=== PATIENT | male | born 1985 | race Caucasian/White ===

== ENCOUNTER 2023-11-01 02:03 | Inpatient (IN) ==
[2023-11-01] MEDS ORDERED: IOPAMIDOL 100 ML BOTTLE IV ONE (02:04)
[2023-11-01] MEDS: LACTATED RINGERS 1,000 ML IV ONE (02:40)
[2023-11-01] MEDS: DIAZEPAM 10 MG/2 ML SYRINGE IV ONE (02:40)
[2023-11-01 02:54] LABS: Basophils # (Auto) 0.05 K/mcL (0.00-0.30); Basophils % (Auto) 0.8 % (0.0-2.0); Eosinophils # (Auto) 0.12 K/mcL (0.00-0.70); Hematocrit 40.5 % (40.1-51.0); Hemoglobin 13.7 g/dL (13.7-17.5); Lymphocytes # (Auto) 0.99 K/mcL (1.50-4.80); Lymphocytes % (Auto) 16.5 % (15.5-49.0); Mean Cell Volume 98.5 fL (80.0-100.0); Mean Corpuscular HGB Conc 33.8 g/dL (31.0-36.0); Mean Platelet Volume 10.7 fL (8.8-12.5); Monocytes # (Auto) 0.73 K/mcL (0.10-0.90); Monocytes % (Auto) 12.1 % (1.0-12.0); Neutrophils % (Auto) 68.4 % (38.0-78.0); Platelet Count 132 K/mcL (140-440); RBC 4.11 M/mcL (4.63-6.08)
[2023-11-01] MEDS: HYDROmorphone 0.5 MG/0.5 ML SYRINGE IV ONE ×2 (03:05→03:40)
[2023-11-01 03:06] LABS: ALT/SGPT 214 U/L (<40); AST/SGOT 307 U/L (<40); Albumin 4.7 gm/dL (3.2-5.2); Albumin/Globulin Ratio 1.6 (1.0-2.3); Alkaline Phosphatase 126 U/L (39-117); Bilirubin,Total 1.4 mg/dL (0.1-1.0); Blood Urea Nitrogen 7 mg/dL (6-20); Calcium 9.7 mg/dL (8.6-10.4); Carbon Dioxide 26 mmol/L (22-30); Chloride 87 mmol/L (96-108); Glomerular Filtration Rate 120; Glucose 118 mg/dL (70-105)
[2023-11-01 03:10] LABS: Appearance,Urine CLEAR (Clear); Bilirubin,Urine Negative (Negative); Color,Urine AMBER; Culture Indicated,Urine No; Glucose,Urine (UA) Negative (Negative); Ketones,Urine 20 mg/dL (Negative); Leukocyte Esterase,Urine Negative /uL (Negative); Nitrate,Urine Negative (Negative); Protein,Urine Negative (Negative); Specific Gravity,Urine 1.025 (1.000-1.035); Urine Blood Negative (Negative)
[2023-11-01] MEDS: 0.9 % SODIUM CHLORIDE 1,000 ML IV ONE (03:51)
[2023-11-01] MEDS: ACETAMINOPHEN 1,000 MG/100 ML BAG IV ONE (04:07)
[2023-11-01] MEDS: LORazepam 2 MG/ML VIAL IV ONE (04:22)
[2023-11-01] MEDS: ONDANSETRON 4 MG/2 ML VIAL IV ONE (04:22)
[2023-11-01] MEDS: KETOROLAC 15 MG/ML VIAL IV ONE (05:48)
[2023-11-01] MEDS ORDERED: chlordiazePOXIDE 25 MG CAPSULE PO PRN (09:30)
[2023-11-01] MEDS ORDERED: ENALAPRILAT 1.25 MG/ML VIAL IV PRN (09:30)
[2023-11-01] MEDS ORDERED: SENNOSIDES 1 TABLET PO PRN (09:32)
[2023-11-01] MEDS ORDERED: IPRATROPIUM/ALBUTEROL 3 ML AMPUL.NEB NEB PRN (09:32)
[2023-11-01] MEDS ORDERED: ACETAMINOPHEN 325 MG TABLET PO PRN (09:32)
[2023-11-01] MEDS ORDERED: POTASSIUM CHLORIDE 20 MEQ TABLET PO PRN ×2 (09:32)
[2023-11-01] MEDS ORDERED: POTASSIUM CHLORIDE 40 MEQ in DEXTROSE 5% IN WATER 500 ML IV PRN (09:32)
[2023-11-01] MEDS ORDERED: POLYETHYLENE GLYCOL 3350 17 GM PACKET PO PRN (09:32)
[2023-11-01] MEDS: HYDROmorphone 0.5 MG/0.5 ML SYRINGE IV PRN (09:41)
[2023-11-01 09:58] LABS: Lactate Dehydrogenase 309 U/L (135-225)
[2023-11-01] MEDS: ENOXAPARIN 40 MG/0.4 ML SYRINGE SQ SCH (10:26)
[2023-11-01] MEDS: FOLIC ACID 1 MG TABLET PO SCH (10:26)
[2023-11-01] MEDS: MULTIVIT,THER IRON,CA,FA & MIN 1 TABLET PO SCH (10:26)
[2023-11-01] MEDS: 0.9 % SODIUM CHLORIDE 1,000 ML IV SCH ×2 (10:27→18:11)
[2023-11-01] MEDS: THIAMINE 100 MG in 0.9 % SODIUM CHLORIDE 50 ML IV SCH (10:27)
[2023-11-01] MEDS: HYDROmorphone 1 MG/ML SYRINGE ONE (10:28)
[2023-11-01] MEDS: HYDROcodone/APAP 5/325MG TABLET PO PRN (10:46)
[2023-11-01] MEDS: LORazepam 2 MG/ML VIAL IV PRN (11:10)
[2023-11-01 12:51] LABS: Hepatitis A Antibody IgM Non-Reactive (Non-Reactive); Hepatitis B Surface Antigen Negative (Negative); Hepatitis C Virus Antibody Non-Reactive (Non-Reactive)
[2023-11-01] MEDS ORDERED: ONDANSETRON 4 MG ODT TABLET SL PRN (13:12)
[2023-11-01] MEDS: ONDANSETRON 4 MG/2 ML VIAL ONE (13:18)
[2023-11-01] MEDS: ONDANSETRON 4 MG/2 ML VIAL IV PRN (13:18)
[2023-11-01] MEDS: 0.9 % SODIUM CHLORIDE 10 ML SYRINGE IV SCH (14:02)
[2023-11-01] MEDS: cloNIDine HCL 0.1 MG TABLET PO PRN (19:17)
[2023-11-01] MEDS: DOCUSATE SODIUM 100 MG CAPSULE PO SCH (20:53)
[2023-11-01] MEDS: ALPRAZolam 0.5 MG TABLET PO SCH (20:54)
[2023-11-02] MEDS: MAGNESIUM SULFATE 2 GM/50 ML BAG IV PRN (03:09)
[2023-11-02 06:47] LABS: ALT/SGPT 134 U/L (<40); AST/SGOT 147 U/L (<40); Albumin 4.1 gm/dL (3.2-5.2); Albumin/Globulin Ratio 1.7 (1.0-2.3); Alkaline Phosphatase 97 U/L (39-117); Bilirubin,Direct 0.5 mg/dL (<0.3); Bilirubin,Total 1.1 mg/dL (0.1-1.0); Blood Urea Nitrogen 7 mg/dL (6-20); Calcium 9.1 mg/dL (8.6-10.4); Carbon Dioxide 26 mmol/L (22-30); Chloride 88 mmol/L (96-108); Globulin 2.4 gm/dL (2.2-3.7); Glomerular Filtration Rate 114; Glucose 81 mg/dL (70-105); Lactate Dehydrogenase 190 U/L (135-225); Phosphorous 3.4 mg/dL (2.5-4.5); Triglycerides 54 mg/dL (<150); Uric Acid 4.2 mg/dL (2.5-8.0)
[2023-11-02 07:37] LABS: Basophils # (Auto) 0.03 K/mcL (0.00-0.30); Basophils % (Auto) 0.4 % (0.0-2.0); Eosinophils % (Auto) 4.1 % (0.0-7.0); Hematocrit 36.2 % (40.1-51.0); Hemoglobin 11.9 g/dL (13.7-17.5); Lymphocytes # (Auto) 0.93 K/mcL (1.50-4.80); Lymphocytes % (Auto) 12.7 % (15.5-49.0); Mean Cell Volume 102.5 fL (80.0-100.0); Mean Corpuscular HGB Conc 32.9 g/dL (31.0-36.0); Mean Platelet Volume 10.6 fL (8.8-12.5); Monocytes # (Auto) 0.76 K/mcL (0.10-0.90); Monocytes % (Auto) 10.4 % (1.0-12.0); Platelet Count 131 K/mcL (140-440); RBC 3.53 M/mcL (4.63-6.08); Red Cell Distribution Width 13.2 % (11.5-14.5); WBC 7.3 K/mcL (4.5-11.0)
[2023-11-02] MEDS: LISINOPRIL 20 MG TABLET PO SCH (08:12)
[2023-11-02] MEDS: VENLAFAXINE 75 MG CAP.XL.24H PO SCH (08:12)
[2023-11-02] MEDS: SODIUM CHLORIDE 1 GM TABLET PO SCH (08:12)
[2023-11-02] MEDS: diphenhydrAMINE 25 MG CAPSULE PO PRN (21:27)
[2023-11-02] MEDS: MELATONIN 3 MG TABLET PO PRN (23:47)
[2023-11-03 06:50] LABS: Basophils # (Auto) 0.04 K/mcL (0.00-0.30); Basophils % (Auto) 0.8 % (0.0-2.0); Eosinophils # (Auto) 0.32 K/mcL (0.00-0.70); Eosinophils % (Auto) 6.2 % (0.0-7.0); Hematocrit 34.3 % (40.1-51.0); Hemoglobin 11.5 g/dL (13.7-17.5); Lymphocytes # (Auto) 1.12 K/mcL (1.50-4.80); Lymphocytes % (Auto) 21.7 % (15.5-49.0); Mean Cell Volume 102.1 fL (80.0-100.0); Mean Corpuscular HGB Conc 33.5 g/dL (31.0-36.0); Mean Platelet Volume 10.5 fL (8.8-12.5); Monocytes # (Auto) 0.83 K/mcL (0.10-0.90); Monocytes % (Auto) 16.1 % (1.0-12.0); Neutrophils % (Auto) 54.8 % (38.0-78.0); Platelet Count 146 K/mcL (140-440); RBC 3.36 M/mcL (4.63-6.08); WBC 5.2 K/mcL (4.5-11.0)
[2023-11-03 09:11] LABS: ALT/SGPT 122 U/L (<40); AST/SGOT 142 U/L (<40); Albumin 4.1 gm/dL (3.2-5.2); Albumin/Globulin Ratio 1.6 (1.0-2.3); Alkaline Phosphatase 104 U/L (39-117); Bilirubin,Direct 0.4 mg/dL (<0.3); Bilirubin,Total 0.9 mg/dL (0.1-1.0); Blood Urea Nitrogen 5 mg/dL (6-20); Calcium 9.3 mg/dL (8.6-10.4); Carbon Dioxide 24 mmol/L (22-30); Chloride 96 mmol/L (96-108); Globulin 2.6 gm/dL (2.2-3.7); Glomerular Filtration Rate 120; Glucose 99 mg/dL (70-105); Lactate Dehydrogenase 194 U/L (135-225); Phosphorous 3.1 mg/dL (2.5-4.5); Triglycerides 53 mg/dL (<150); Uric Acid 3.3 mg/dL (2.5-8.0)
[2023-11-03] MEDS: THIAMINE 100 MG TABLET PO SCH (09:12)
== END 2023-11-03 09:35 | disposition home or self-care (01) | DRG 439 ==
LOC: ED 02:03 → ICU 02:03 → OBSVTOIN 07:39 → ICU 07:42
PROVIDERS: ADMIT Internal Medicine; ATTEND Internal Medicine